=== PATIENT | male | born 1960 | race Caucasian/White ===

== ENCOUNTER 2021-10-17 04:28 | Emergency (ER) | payer MEDICAID ==
[~2021-10-17] VITALS: Ht 185.4 cm; Wt 113.4 kg
[2021-10-17 04:28] VITALS: BP 170/87
== END 2021-10-17 07:07 | disposition left against medical advice (07) ==
LOC: ER 04:28
DX: R10.84 Generalized abdominal pain (principal); Z53.21 Procedure and treatment not carried out due to patient leaving prior to being seen by health care provider

== ENCOUNTER 2024-03-19 07:25 | Day surgery (SDC) | payer MEDICARE, MEDICAID ==
[2024-03-17 12:52] LABS: Urine Bacteria None Seen /hpf (None Seen)
[2024-03-17 13:00] LABS: Basophils # (auto) 0.1 10 ^3/uL (0-0.2); Basophils % (auto) 1.4 % (0.0-2.0); Eosinophils # (auto) 0.2 10 ^3/uL (0-0.8); Eosinophils % (auto) 2.4 % (0.0-7.0); Hematocrit 43.3 % (41.0-53.0); Lymphocytes # (auto) 1.2 10 ^3/uL (0.4-5.4); Lymphocytes % (auto) 18.8 % (10.0-50.0); Mean Corpuscular Hemoglobin 33.6 pg (28.0-32.0); Mean Corpuscular Hgb Conc. 34.7 g/dL (32.0-36.0); Mean Corpuscular Volume 96.8 fL (80.0-100.0); Monocytes # (auto) 0.6 10 ^3/uL (0-1.3); Monocytes % (auto) 8.5 % (0.0-12.0); Neutrophils # (auto) 4.5 10 ^3/uL (1.6-8.6); Neutrophils % (auto) 68.9 % (37.0-80.0); Platelet Count (auto) 224 10^3/uL (140-450); Red Blood Cells 4.47 10^6/uL (4.5-5.90); Red Cell Distribution Width 14.2 % (11.8-14.3); White Blood Cell 6.6 10^3/uL (4.4-10.8)
[2024-03-17 13:23] LABS: Alanine Aminotransferase 38 U/L (7-40); Albumin 4.5 g/dL (3.2-4.8); Alkaline Phosphatase 44 U/L (46-116); Anion Gap 6 (5-15); Aspartate Aminotransferase 19 U/L (13-40); BUN/Creatinine Ratio 9.4 (10.0-20.0); Bilirubin, Total 0.7 mg/dL (0.2-1.0); Blood Urea Nitrogen 9 mg/dL (9-23); Calcium 10.3 mg/dL (8.7-10.4); Carbon Dioxide 27 mmol/L (20-31); Chloride 106 mmol/L (98-107); Glucose 80 mg/dL (74-106); Potassium 4.2 mmol/L (3.5-5.1); Sodium 139 mmol/L (136-145); Total Protein 6.9 g/dL (5.7-8.2)
[2024-03-17 13:29] LABS: INR 0.98 (0.9-1.15); Partial Thromboplastin Time 25.7 SEC (24.5-34.5); Prothrombin Time 10.4 sec (9.3-11.8)
[2024-03-17 13:30] LABS: Urine Blood Negative /uL (Negative); Urine Clarity Clear (Clear); Urine Color Yellow (Yellow); Urine Mucus FEW (None Seen); Urine Protein, UAD TRACE (Negative); Urine Specific Gravity 1.024 (1.001-1.035); Urine Urobilinogen Normal (Negative); Urine WBC 1 /hpf (0 - 3)
[~2024-03-19] VITALS: Ht 185.4 cm; Wt 92.5 kg
[~2024-03-19 07:25] MED LIST: PERCOT PO
[2024-03-19] MEDS ORDERED: MIDAZOLAM HCL 2MG/2ML 2ml VIAL (1mg/ml) ONE (07:46)
[2024-03-19] MEDS ORDERED: PROPOFOL 10 MG/ML 20 ML IV ONE (07:46)
[2024-03-19] MEDS ORDERED: KETAMINE 50mg/ML 1ml syringe ONE (07:47)
[2024-03-19] MEDS ORDERED: ONDANSETRON HCL 4 MG/2 ML VIAL ONE (07:47)
[2024-03-19] MEDS ORDERED: GLYCOPYRROLATE 0.2 MG/ML 1ML VIAL ONE (07:47)
[2024-03-19 08:27] VITALS: PULSE 89; RESP 16; O2SAT 94
[2024-03-19 08:30] VITALS: TEMP 97.8
[2024-03-19 08:45] VITALS: BP 145/79; PULSE 84; RESP 13; O2SAT 93
[2024-03-19] MEDS ORDERED: fentaNYL CITRATE 100 MCG/2 ML VL IV PRN (08:45)
== END 2024-03-19 09:35 | disposition home or self-care (01) ==
LOC: GI 07:25
PROVIDERS: ATTEND Internal Medicine Gastroenterology
DX: R19.5 Other fecal abnormalities (principal); D12.2 Benign neoplasm of ascending colon; D12.5 Benign neoplasm of sigmoid colon; D12.3 Benign neoplasm of transverse colon; K64.8 Other hemorrhoids; Z90.49 Acquired absence of other specified parts of digestive tract; Z88.6 Allergy status to analgesic agent; Z98.890 Other specified postprocedural states
CPT/HCPCS: 36415; 45380; 80053; 81001; 85025; 85610; 85730; 88305; J2250; J2405; J2704; J7030